=== PATIENT | female | born 1990 | race Caucasian/White ===

== ENCOUNTER 2020-04-25 18:51 | Emergency (ER) | payer BC, SELFPAY ==
[2020-04-25 19:01] VITALS: BP 125/72; PULSE 120; RESP 16; O2SAT 96; BMI 43.4
--- NOTE | 2020-04-25 19:45 | HMH.EDUTC ---
[facility] [place] Disposition Clinical Impression: Viral syndrome Disposition: Home, Self-Care Condition on Discharge: Good Instructions: Preventing the Spread of Coronavirus Discharge Instructions Additional Instructions: Drink plenty of fluids. Take tylenol or ibuprofen for pain or fever. Take the medications as directed. Follow up with your regular doctor. GO TO THE ER FOR ANY WORSENING SYMPTOMS FOLLOW THE DIRECTIONS ON THE COVID-19 HAND OUT THAT WE GAVE YOU REGARDING SELF-ISOLATION UNTIL YOU KNOW YOUR COVID-19 RESULTS Prescriptions: Ondansetron [Zofran 4mg ODT] 4 mg PO Q8HP PRN #20 tab.rapdis PRN Reason: Nausea Transmission Status: Received by [facility] #[id number] Referrals: Morgan Love MD [Primary Care Provider] - Forms: Work/School Release Time of Disposition: 20:20 Medical Decision Making - Medical Records Medical records reviewed: No: I reviewed the patient's medical records. - Devonte Inquiry Pt receiving controlled substance: No Vital Signs: 04/25/20 19:01 04/25/20 19:57 04/25/20 20:08 Temperature 99.5 F 99.5 F Temperature Source Oral Oral Pulse Rate Pulse Rate [Right Brachial] 120 H 120 H Respiratory Rate 16 16 Blood Pressure Blood Pressure [Right Arm] 125/72 125/72 Blood Pressure Mean [Right Arm] 89 89 Blood Pressure Source [Right Arm] Automatic Cuff Automatic Cuff Blood Pressure Position [Right Arm] Sitting Sitting 02 Sat by Pulse Oximetry 96 96 Oxygen Delivery Method Room Air Room Air 04/25/20 20:23 Temperature 99.7 F H Temperature Source Pulse Rate 120 H Pulse Rate [Right Brachial] Respiratory Rate 16 Blood Pressure 125/72 Blood Pressure [Right Arm] Blood Pressure Mean [Right Arm] Blood Pressure Source [Right Arm] Blood Pressure Position [Right Arm] 02 Sat by Pulse Oximetry Oxygen Delivery Method - Lab Data Lab results reviewed: Yes: I reviewed the patient's lab results. Lab Results 04/25/20 19:51: Strep Scn [facility] Negative Orders (Tests/Meds): ED MEDICATIONS Discontinued Medications Generic Name Dose Route Start Last Admin Trade Name Freq PRN Reason Stop Dose Admin Ibuprofen 800 mg 04/25/20 20:15 04/25/20 20:20 Motrin 400mg Tablet PO 04/25/20 20:16 800 mg ONCE ONE Administration Ondansetron HCl 4 mg 04/25/20 19:51 04/25/20 19:50 Zofran 4mg Odt SL 04/25/20 19:52 4 mg ONCE ONE Administration ORDERS Category Date Time Status Coronavirus 19 Swab (OUTPT) Routine Lab 04/25/20 20:01 Received Strep Screen Confirmation Stat Micro 04/25/20 19:51 Received [facility] [place] HPI - General Stated complaint: pain everwhere Time Seen by Provider: 04/25/20 19:45 Mode of Arrival: Wheelchair Source of Information: Patient Limitations: No Limitations Description of Symptoms (Recalled from Triage Doc. by RN): Patient reports body aches and chills that started around 1300. Patient reports when she got here, she got nauseated and started vomiting. - History of Present Illness Provider Complaint: She c/o severe body aches for the past several hours. She states that her temp was 99.0. She has also had some chilling. She denies any significant couhg. She has had some n/v, but she denies any diarrhea. She works at [employer] [facility] [place]. - Related Data Previous Rx's Medication Instructions Recorded Ondansetron [Zofran 4mg ODT] 4 mg PO Q8HP PRN #20 tab.rapdis 04/25/20 Allergies Allergy/AdvReac Type Severity Reaction Status Date / Time No Known Drug Allergies Allergy Unknown Unverified 08/30/17 14:54 [NO KNOWN DRUG ALLERGIES] [facility] History - Hepatitis A Screen Attestation statement:: This patient has been screened for Hepatitis A risk factors. I have reviewed the patient's past medical history: Yes ROS Obtained: Yes All systems reviewed & no additional complaints - Constitutional Constitutional: Reports chills, Reports fever(s), Reports poor appetite, Reports m
[2020-04-25 19:57] VITALS: TEMP 37.5
[2020-04-25 20:08] VITALS: BP 125/72; PULSE 120; RESP 16; TEMP 37.5; O2SAT 96; BMI 43.4
[2020-04-25 20:13] LABS: UTC Strep Screen (Rapid) Negative (Negative)
[2020-04-25 20:23] VITALS: BP 125/72; PULSE 120; RESP 16; TEMP 37.6; O2SAT 96
[2020-04-25 21:43] LABS: Apearance,Urine Clear (Clear); Bilirubin,Urine Negative (Negative); Blood, Urine Trace (Negative); Color,Urine Yellow (Yellow); Glucose,Urine (UA) Negative (Negative); Ketones,Urine Negative (Negative); Protein,Urine Negative (Negative); UTC Leukocyte Esterase,Urine Negative (Negative); UTC Nitrate,Urine Negative (Negative); UTC Pregnancy Test, Urine Negative (Negative); Urobilinogen,Urine 1 EU/dl (0.2)
== END 2020-04-25 20:25 | disposition home or self-care (01) ==
PROVIDERS: Emergency Provider Nurse Practitioner Family; PCP Family Medicine
DX: B34.9 Viral infection, unspecified (principal); Z20.828 Contact with and (suspected) exposure to other viral communicable diseases
CPT/HCPCS: 81003; 81025; 87880; 99203; U0003

== ENCOUNTER 2021-12-15 06:40 | Emergency (ER) | payer BC, OTHER, SELFPAY ==
--- NOTE | 2021-12-15 06:39 | ECG_ITS ---
APPROVED REPORT Exam: Resting ECG HR:103 bpm ECG Measurements Heart Rate 103 AXES LA 144 P 35 QRSd 85 QRS 101 QT 329 T 21 QTc 389 Conclusion SINUS TACHYCARDIA RIGHT AXIS DEVIATION [QRS AXIS > 100] ABNORMAL ECG UNCONFIRMED REPORT Electronically signed by : Moe Rodriguez MD 12/16/2021 17:34:58
[2021-12-15 06:40] VITALS: BP 135/95; PULSE 92; RESP 16; TEMP 37.2; O2SAT 97; BMI 47.2
--- NOTE | 2021-12-15 06:49 | XR_ITS ---
FINAL REPORT TECHNIQUE: Chest PA & Lateral CLINICAL HISTORY: chest pain x3 days FINDINGS: 2 views of the chest were performed. The heart size is normal. The mediastinum is within normal limits. The lungs are underinflated. There is peribronchial thickening that may be due to bronchitis. There is no acute infiltrate. There are no pleural effusions. There is no pneumothorax. The bony thorax appears intact. IMPRESSION: Parabronchial thickening may be due to bronchitis. Reviewed, Interpreted and Dictated by Krystian Dooley MD Transcribed by Hoang Hendrickson Authenticated by Krystian Dooley MD on 12/15/2021 07:44:43 AM [facility]
--- NOTE | 2021-12-15 06:54 | HMH.EDCP ---
ED Disposition Clinical Impression: Atypical chest pain Disposition: Home, Self-Care Condition on Discharge: Good Instructions: DI for Atypical Chest Pain Additional Instructions: call pcp for follow up Referrals: Morgan Love MD [Primary Care Provider] - - Critical Care Critical Care Time: No Attestation: On 12/15/21, the high probability of a clinically significant, sudden or life threatening deterioration of the following system(s) required my full and direct attention, intervention and personal management. The time I documented below is in addition to time spent performing reported procedures but includes the following listed in this critical care notation. Medical Decision Making - Medical Records Medical records reviewed: Yes: I reviewed the patient's medical records. - Devonte Inquiry Pt receiving controlled substance: No Vital Signs: 12/15/21 06:40 12/15/21 06:59 12/15/21 07:04 Temperature 98.9 F Temperature Source Oral Pulse Rate 96 H 100 H Pulse Rate [Left Radial] 92 H Respiratory Rate 16 13 Blood Pressure 115/85 Blood Pressure [Right Arm] 135/95 H Blood Pressure Mean [Right Arm] 108 02 Sat by Pulse Oximetry 97 95 Oxygen Delivery Method Room Air Room Air 12/15/21 07:34 Temperature Temperature Source Pulse Rate 69 Pulse Rate [Left Radial] Respiratory Rate 17 Blood Pressure 119/76 Blood Pressure [Right Arm] Blood Pressure Mean [Right Arm] 02 Sat by Pulse Oximetry 94 L Oxygen Delivery Method Room Air - Lab Data Lab results reviewed: Yes: I reviewed the patient's lab results. Lab Results 12/15/21 06:42: WBC 7.8, RBC 4.90, Hgb 14.7, Hct 44.9, MCV 91.6, MCH 29.9, MCHC 32.6, RDW 13.7, Plt Count 238, MPV 9.7, Neut % (Auto) 51.4, Lymph % (Auto) 38.6, Faulk % (Auto) 5.6, Eos % (Auto) 3.1, Baso % (Auto) 1.3, Neut # (Auto) 4.0, Lymph # (Auto) 3.0, Faulk # (Auto) 0.4, Eos # (Auto) 0.2, Baso # (Auto) 0.1 12/15/21 06:42: Sodium 139, Potassium 3.9, Chloride 104, Carbon Dioxide 27, Anion Gap 11.9, BUN 11, Creatinine 0.70, Estimated Creat Clear 89, Estimated GFR 99, Est GFR ( Amer) 120, Glucose 95, Calcium 8.5, Troponin I < 0.01, C-Reactive Protein 2.3, Amylase 87 12/15/21 06:42: Lipase 113 12/15/21 06:42: Total Bilirubin 0.7, Direct Bilirubin 0.3, Conjugated Bilirubin 0.0, Indirect Bilirubin 0.4, Unconjugated Bilirubin 0.4, AST 35, ALT 39, Alkaline Phosphatase 111, Total Protein 7.5, Albumin 4.2 12/15/21 06:42: Serum HCG, Qual Negative Result diagrams: 12/15/21 06:42 12/15/21 06:42 Orders (Tests/Meds): ED MEDICATIONS Generic Name Dose Route Start Last Admin Trade Name Freq PRN Reason Stop Dose Admin Sodium Chloride 1,000 mls @ 999 mls/hr 12/15/21 07:00 12/15/21 06:58 Sod Chlor 0.9% 1000ml Bag IV 12/15/21 08:00 999 mls/hr .Q1H1M FARSHAD Administration Sodium Chloride 8 ml 12/15/21 06:48 Sodium Chloride 0.9% 10ml Vial IV 01/14/22 06:47 NEEDED PRN dilute pepcid Discontinued Medications Generic Name Dose Route Start Last Admin Trade Name Freq PRN Reason Stop Dose Admin Aspirin 324 mg 12/15/21 06:47 12/15/21 06:55 Aspirin 81mg Chewable Tablet PO 12/15/21 06:48 324 mg ONCE ONE Administration Famotidine 20 mg 12/15/21 06:48 12/15/21 06:55 Famotidine 20mg/2ml Vial IV 12/15/21 06:49 20 mg ONCE ONE Administration Metoclopramide HCl 10 mg 12/15/21 06:56 12/15/21 06:57 Metoclopramide Hcl 10mg/2ml Vial IVP 12/15/21 06:57 10 mg ONCE ONE Administration Nitroglycerin 1 gm 12/15/21 06:48 12/15/21 06:57 Nitroglycerin 1 Gm Ointment TD 12/15/21 06:49 1 gm ONCE ONE Administration ORDERS Category Date Time Status Troponin I Q3H Lab 12/15/21 10:00 Ordered Troponin I Q3H Lab 12/15/21 13:00 Ordered - Radiology Data #1 Image(s): Chest Image Reviewed: Yes I have reviewed radiologist's interpretation Preliminary Findings: Normal/NAD - ECG Data Tracing #1 Arrhythmias pres
[2021-12-15 06:59] VITALS: PULSE 96
[2021-12-15 06:59] LABS: Chloride 104 mmol/L (98-107); Potassium 3.9 mmoL/L (3.5-5.1); Sodium 139 mmol/L (136-145)
[2021-12-15 07:02] LABS: Amylase 87 U/L (30-110); Anion Gap 11.9 mEq/L (5-15); Bilirubin,Unconjugated 0.4 mg/dL (0.0-1.1); Blood Urea Nitrogen 11 mg/dl (7-17); Carbon Dioxide 27 mmol/L (22.0-30.0); Creatinine Clearance Estimated 89 mL/min (50-200); Estimated Glomerular Filt Rate 99 ml/min (>60); GFR (African American) 120 ML/MIN (>60); Lipase 113 U/L (23-300)
[2021-12-15 07:03] LABS: Alanine Aminotransferase 39 U/L (12-78); Albumin Level 4.2 g/dl (3.5-5.0); Alkaline Phosphatase 111 U/L (38-126); Aspartate Amino Transferase 35 U/L (14-36); Bilirubin,Direct 0.3 mg/dl (0.0-0.4); Bilirubin,Indirect 0.4 mg/dL (0.0-0.9); Bilirubin,Total 0.7 mg/dl (0.2-1.3); Calcium 8.5 mg/dl (8.4-10.2); Glucose 95 mg/dl (74-100); Total Protein,Serum 7.5 g/dl (6.3-8.2)
[2021-12-15 07:04] VITALS: BP 115/85; PULSE 100; RESP 13; O2SAT 95
[2021-12-15 07:08] LABS: C-Reactive Protein 2.3 mg/L (0-4)
--- NOTE | 2021-12-15 07:12 | PC.NURSE ---
Patient to radiology by wheelchair with reactor technician
--- NOTE | 2021-12-15 07:16 | PC.NURSE ---
patient back from radiology with photo tech by wheelchair
[2021-12-15 07:18] LABS: Basophils # 0.1 K/mm3 (0-0.2); Basophils % 1.3 % (0.1-2.0); Eosinophils # 0.2 K/mm3 (0.0-0.4); Eosinophils % 3.1 % (0.1-12.0); Hematocrit 44.9 % (37.0-47.0); Hemoglobin 14.7 g/dL (12.2-16.2); Lymphocytes % 38.6 % (10-50); Mean Corpuscular HGB Conc 32.6 g/dL (31.8-35.4); Mean Corpuscular Hemoglobin 29.9 pg (27.0-31.2); Mean Corpuscular Volume 91.6 fl (81-99); Mean Platelet Volume 9.7 fl (7.4-10.4); Monocytes # 0.4 K/mm3 (0.1-1.0); Monocytes % 5.6 % (1.7-9.3); Neutrophils % 51.4 % (37.0-80.0); Platelet Count 238 K/mm3 (142-424); Red Cell Distribution Width 13.7 % (11.5-17.5); White Blood Count 7.8 K/mm3 (4.8-10.8)
[2021-12-15 07:19] LABS: HCG Qualitative, Serum Negative (Negative); Troponin I < 0.01 ng/ml (0.00-0.034)
[2021-12-15 07:34] VITALS: BP 119/76; PULSE 69; RESP 17; O2SAT 94
--- NOTE | 2021-12-15 07:59 | PC.NURSE ---
ED MD at for update on POC
[2021-12-15 08:02] VITALS: BP 108/74; PULSE 89; O2SAT 95
[2021-12-15 08:03] VITALS: BP 108/74; PULSE 79; RESP 12; TEMP 36.8; O2SAT 95
== END 2021-12-15 08:07 | disposition home or self-care (01) ==
PROVIDERS: Emergency Provider Emergency Medicine; PCP Family Medicine
DX: R07.89 Other chest pain (principal); Z87.891 Personal history of nicotine dependence
CPT/HCPCS: 71046; 80048; 80076; 82150; 83690; 84484; 84703; 85025; 86140; 93005; 96365; 96375; 99284